=== PATIENT | female | born 1940 | race Asian ===

== ENCOUNTER → 2016-10-29 | Outpatient (CLI) | payer MEDICARE | END | disposition home or self-care (01) | LOC: CFH 10:02 | PROVIDERS: ATTEND Family Medicine | DX: Z12.31 Encounter for screening mammogram for malignant neoplasm of breast (principal) | CPT/HCPCS: G0202 ==

== ENCOUNTER → 2017-09-29 | Outpatient (CLI) | payer MEDICARE | LOC: CFH 07:53 | PROVIDERS: ATTEND Internal Medicine Nephrology | DX: N17.8 Other acute kidney failure (principal) | CPT/HCPCS: 76770 ==

== ENCOUNTER 2018-03-23 09:23 | Inpatient (IN) | payer MEDICARE ==
[~2018-03-23] VITALS: Ht 149.9 cm; Wt 77.7 kg
[2018-03-23] MEDS ORDERED: SODIUM CHLORIDE 0.9% 1,000 ML IV ONE (10:08)
[2018-03-23] MEDS ORDERED: SODIUM CHLORIDE 0.9% 1,000ML IVBOLUS ONE (10:30)
[2018-03-23] MEDS ORDERED: SODIUM CHLORIDE FLUSH 10ML SYR IVF ONE (10:30)
[2018-03-23 10:52] LABS: ALANINE AMINOTRANSFERASE 27 U/L (12-78); ALBUMIN 2.9 g/dL (3.4-5.0); ANION GAP 12 mmol/L (5-15); CALCIUM 8.7 mg/dL (8.5-10.1); CHLORIDE 97 mmol/L (98-107); CREATININE 1.88 mg/dL (0.55-1.02)
[2018-03-23 10:57] LABS: ALKALINE PHOSPHATASE 104 U/L (45-117); BILIRUBIN,TOTAL 2.8 mg/dL (0.2-1.0); TOTAL PROTEIN 7.8 g/dL (6.4-8.2); TROPONIN I 0.074 ng/mL (0.000-0.045)
[2018-03-23 11:17] LABS: MEAN CORPUSCULAR HEMOGLOBIN 32.2 pg (27.0-34.8); MEAN CORPUSCULAR HGB CONC 34.7 g/dL (32.4-35.8); MEAN PLATELET VOLUME 9.9 fL (7.4-10.4); PLATELET COUNT 93 x10^3/uL (130-400); RED BLOOD COUNT 3.57 x10^6/uL (3.82-5.3); RED CELL DISTRIBUTION WIDTH 16.2 % (9.6-15.2)
[2018-03-23 11:18] LABS: MD YES
[2018-03-23] MEDS ORDERED: LOSA100T7 PO (11:18)
[2018-03-23] MEDS ORDERED: INSU100V8 SQ (11:18)
[2018-03-23] MEDS ORDERED: METO50TA82 PO (11:18)
[2018-03-23 11:19] LABS: BANDS%(MANUAL) 10 % (0-7); LYMPH#(MANUAL) 0.96 x10^3/uL (1-3.4); LYMPHS% (MANUAL) 6 % (22-44); MONOS#(MANUAL) 0.48 x10^3/uL (0.3-2.7); MONOS% (MANUAL) 3 % (2-9); SEG#(MANUAL) 12.96 x10^3/uL (1.8-6.8); SEGS% (MANUAL) 81 % (42-75)
[2018-03-23] MEDS ORDERED: LEVO50TA5 PO (11:19)
[2018-03-23] MEDS ORDERED: ATOR40TA PO (11:19)
[2018-03-23] MEDS ORDERED: MAGN400T22 PO (11:19)
[2018-03-23] MEDS ORDERED: AMIT10TA PO (11:19)
[2018-03-23] MEDS ORDERED: GLIM4TAB2 PO (11:19)
[2018-03-23] MEDS ORDERED: PIOG45TA64 PO (11:19)
[2018-03-23 11:20] LABS: <PLT MORPHOLOGY> NORMAL PLT MORPH; ANISOCYTOSIS 1+
[2018-03-23 11:22] LABS: <PLATELET ESTIMATE> ADEQUATE
[2018-03-23 11:35] LABS: MICROSCOPIC AUTO
[2018-03-23 11:42] LABS: CULTURE INDICATED? YES
[2018-03-23] MEDS ORDERED: CEFTRIAXONE 1,000 MG in SODIUM CHLORIDE 0.9% 50 ML IVPB ONE (12:00)
[2018-03-23] MEDS ORDERED: SODIUM CHLORIDE FLUSH 10ML SYR IVF PRN (12:00)
[2018-03-23] MEDS ORDERED: CEFTRIAXONE PMX 1GM/50ML 50 ML IVPB ONE (12:00)
[2018-03-23] MEDS ORDERED: CEFTRIAXONE PMX 1GM/50ML 50 ML ONE (12:18)
[2018-03-23] MEDS ORDERED: LABETALOL 5MG/ML, 20ML IVPush PRN (12:30)
[2018-03-23] MEDS ORDERED: ONDANSETRON ODT 4 MG PO PRN (12:30)
[2018-03-23] MEDS ORDERED: POLYETHYLENE GLYCOL 17 GM PACKET PO PRN (12:30)
[2018-03-23] MEDS ORDERED: ONDANSETRON 2MG/ML, 2ML IVPush PRN (12:30)
[2018-03-23 13:44] VITALS: BP 137/73
[2018-03-23] MEDS ORDERED: AZIT250T89 PO (13:54)
[2018-03-23] MEDS ORDERED: ASPI-496 PO (13:56)
[2018-03-23] MEDS ORDERED: CEFTRIAXONE PMX 1GM/50ML 50 ML IV ONE (14:00)
[2018-03-23 14:26] VITALS: BP 163/79
[2018-03-23] MEDS ORDERED: SODIUM CHLORIDE 0.45%, 1,000ML IVBOLUS ONE (16:00)
[2018-03-23] MEDS ORDERED: SODIUM CHLORIDE 0.45% 1,000 ML IV SCH (16:00)
[2018-03-23] MEDS ORDERED: PHARMACY MAY ADJ FOR RENAL FX MC PRN (16:00)
[2018-03-23] MEDS: PIPERACILLIN/TAZO/PMX 2.25GM 50 ML IVPB SCH (16:25)
[2018-03-23] MEDS ORDERED: GLUCAGON 1 MG IM PRN (16:30)
[2018-03-23] MEDS ORDERED: DEXTROSE 50%, 50ML SYRINGE IVPush PRN (16:30)
[2018-03-23] MEDS ORDERED: DEXTROSE 4 GM TAB.CHEW PO PRN (16:30)
[2018-03-23 17:01] LABS: TROPONIN I 0.072 ng/mL (0.000-0.045)
[2018-03-23 20:05] VITALS: BP 129/61
[2018-03-23] MEDS: ATORVASTATIN 40 MG TABLET PO SCH (21:00)
[2018-03-23] MEDS: SODIUM CHLORIDE FLUSH 10ML SYR IVF SCH (21:08)
[2018-03-23] MEDS: D5%-0.9% NACL 1,000 ML IV SCH (21:11)
[2018-03-24] MEDS: PIPERACILLIN/TAZO/PMX 2.25GM 50 ML IVPB SCH ×3 (01:26→17:02)
[2018-03-24 01:38] VITALS: BP 135/75
[2018-03-24] MEDS: D5%-0.9% NACL 1,000 ML IV SCH ×3 (05:06→19:58)
[2018-03-24 05:30] LABS: ALANINE AMINOTRANSFERASE 21 U/L (12-78); ALBUMIN 2.1 g/dL (3.4-5.0); ANION GAP 11 mmol/L (5-15); CALCIUM 7.2 mg/dL (8.5-10.1); CHLORIDE 110 mmol/L (98-107); CREATININE 1.44 mg/dL (0.55-1.02)
[2018-03-24 05:31] LABS: MEAN CORPUSCULAR HEMOGLOBIN 32.7 pg (27.0-34.8); MEAN CORPUSCULAR HGB CONC 34.7 g/dL (32.4-35.8); MEAN CORPUSCULAR VOLUME 94.1 fL (80-100); RED BLOOD COUNT 3.25 x10^6/uL (3.82-5.3); RED CELL DISTRIBUTION WIDTH 16.9 % (9.6-15.2)
[2018-03-24 05:40] LABS: ALKALINE PHOSPHATASE 92 U/L (45-117); TOTAL PROTEIN 6.4 g/dL (6.4-8.2)
[2018-03-24 05:59] LABS: PLATELET COUNT 95 x10^3/uL (130-400)
[2018-03-24 06:00] LABS: MD YES; MEAN PLATELET VOLUME 9.7 fL (7.4-10.4)
[2018-03-24 06:01] LABS: BAND#(MANUAL) 1.06 x10^3/uL; BANDS%(MANUAL) 10 % (0-7); LYMPH#(MANUAL) 1.17 x10^3/uL (1-3.4); LYMPHS% (MANUAL) 11 % (22-44); MONOS#(MANUAL) 0.74 x10^3/uL (0.3-2.7); MONOS% (MANUAL) 7 % (2-9); SEG#(MANUAL) 7.63 x10^3/uL (1.8-6.8); SEGS% (MANUAL) 72 % (42-75)
[2018-03-24 06:02] LABS: <PLATELET ESTIMATE> DECREASED; <PLT MORPHOLOGY> NORMAL PLT MORPH; ANISOCYTOSIS 1+
[2018-03-24] MEDS: LEVOTHYROXINE 50 MCG TABLET PO SCH (06:37)
[2018-03-24 07:35] VITALS: BP 124/74
[2018-03-24] MEDS: SODIUM CHLORIDE FLUSH 10ML SYR IVF SCH ×2 (08:27→19:58)
[2018-03-24] MEDS ORDERED: ASPIRIN 81 MG TABLET EC PO SCH (09:00)
[2018-03-24] MEDS ORDERED: POTASSIUM CHLORIDE 20 MEQ TAB.ER.PRT PO ONE (09:00)
[2018-03-24] MEDS: SENNA/DOCUSATE TABLET PO SCH (12:16)
[2018-03-24] MEDS ORDERED: CEFTRIAXONE PMX 2GM/50ML 50 ML IV SCH (12:30)
[2018-03-24 12:31] LABS: FOLATE LEVEL > 20.0 ng/mL (3.1-17.5)
[2018-03-24 12:53] VITALS: BP 114/68
[2018-03-24] MEDS ORDERED: LIDOCAINE-MPF 2% ,5ML ONE (13:42)
[2018-03-24] MEDS ORDERED: MIDAZOLAM 1 MG/ML, 2ML ONE (13:42)
[2018-03-24] MEDS ORDERED: ROCURONIUM 10MG/ML,5ML ONE (13:42)
[2018-03-24] MEDS ORDERED: PROPOFOL 10 MG/ML, 20ML ONE (13:42)
[2018-03-24] MEDS ORDERED: FENTANYL PF 250 MCG/5ML ONE (13:42)
[2018-03-24] MEDS ORDERED: DEXAMETHASONE 4 MG/ML, 1ML ONE ×2 (13:45)
[2018-03-24] MEDS ORDERED: ONDANSETRON 2MG/ML, 2ML ONE ×2 (13:45)
[2018-03-24] MEDS ORDERED: BUPIVACAINE/PF 0.5% ONE (13:53)
[2018-03-24] MEDS ORDERED: LABETALOL 5MG/ML, 20ML IV PRN (15:30)
[2018-03-24] MEDS ORDERED: FENTANYL PF 100 MCG/2ML IV PRN (15:30)
[2018-03-24] MEDS ORDERED: MEPERIDINE/PF 25MG/0.5ML IVPush PRN (15:30)
[2018-03-24] MEDS ORDERED: hydrALAzine 20 MG/ML, 1ML IV PRN (15:30)
[2018-03-24] MEDS ORDERED: HYDROmorphone 2 MG/ML, 1ML IV PRN (15:30)
[2018-03-24] MEDS ORDERED: HALOPERIDOL 5 MG/ML IV PRN (15:30)
[2018-03-24] MEDS ORDERED: OXYcodone 5 MG/5 ML ORAL.SOL UDC PO PRN (15:30)
[2018-03-24] MEDS ORDERED: PROMETHAZINE 25 MG/ML, 1ML IV PRN (15:30)
[2018-03-24] MEDS ORDERED: SUGAMMADEX 200 MG/2 ML IVPush ONE (15:35)
[2018-03-24] MEDS ORDERED: OXYcodone 5 MG/5 ML ORAL.SOL UDC ONE (16:02)
[2018-03-24] MEDS ORDERED: FENTANYL PF 100 MCG/2ML ONE (16:02)
[2018-03-24 16:55] VITALS: BP 123/60
[2018-03-24 18:56] VITALS: BP 113/79
[2018-03-24] MEDS: ATORVASTATIN 40 MG TABLET PO SCH (19:57)
[2018-03-24] MEDS ORDERED: LORazepam 2 MG/ML, 1ML IV PRN (23:00)
[2018-03-24] MEDS ORDERED: LORazepam 1MG TABLET PO PRN (23:00)
[2018-03-24] MEDS: OXYcodone 5 MG/5 ML ORAL.SOL UDC PO PRN (23:35)
[2018-03-25 00:36] VITALS: BP 134/63
[2018-03-25] MEDS: PIPERACILLIN/TAZO/PMX 2.25GM 50 ML IVPB SCH ×2 (01:16→08:58)
[2018-03-25] MEDS: INSULIN GLARGINE 100 UNITS/ML, PEN SQ-INSULIN SCH ×2 (01:35→20:41)
[2018-03-25] MEDS ORDERED: ALBUTEROL/IPRATROPIUM 2.5MG/0.5MG, 3 ML ONE (01:40)
[2018-03-25] MEDS ORDERED: ALBUTEROL/IPRATROPIUM 2.5MG/0.5MG, 3 ML NPPB PRN (02:00)
[2018-03-25 03:47] LABS: ALBUMIN 2.2 g/dL (3.4-5.0); ANION GAP 10 mmol/L (5-15); CALCIUM 7.4 mg/dL (8.5-10.1); CHLORIDE 110 mmol/L (98-107)
[2018-03-25 03:50] LABS: ALANINE AMINOTRANSFERASE 24 U/L (12-78); ALKALINE PHOSPHATASE 92 U/L (45-117); CREATININE 1.25 mg/dL (0.55-1.02); TOTAL PROTEIN 6.3 g/dL (6.4-8.2)
[2018-03-25 03:55] LABS: MEAN CORPUSCULAR HEMOGLOBIN 32.5 pg (27.0-34.8); MEAN CORPUSCULAR HGB CONC 34.9 g/dL (32.4-35.8); MEAN PLATELET VOLUME 9.3 fL (7.4-10.4); PLATELET COUNT 86 x10^3/uL (130-400); RED BLOOD COUNT 3.13 x10^6/uL (3.82-5.3); RED CELL DISTRIBUTION WIDTH 17.3 % (9.6-15.2)
[2018-03-25 04:26] LABS: BASOPHILS # (AUTO) 0.01 x10^3/uL (0-0.1); BASOPHILS % (AUTO) 0 % (0-1); EOSINOPHILS # (AUTO) 0.07 x10^3/uL (0-0.4); EOSINOPHILS % (AUTO) 1 % (1-7); LYMPHOCYTES # (AUTO) 0.91 x10^3/uL (1-3.4); LYMPHOCYTES % (AUTO) 8 % (22-44); MD SCAN; MONOCYTES # (AUTO) 0.74 x10^3/uL (0.2-0.8); MONOCYTES % (AUTO) 7 % (2-9); NEUTROPHILS # (AUTO) 9.42 x10^3/uL (1.8-6.8); NEUTROPHILS % (AUTO) 85 % (42-75)
[2018-03-25] MEDS: OXYcodone 5 MG/5 ML ORAL.SOL UDC PO PRN ×2 (05:48→22:39)
[2018-03-25] MEDS: METOPROLOL TARTRATE 50 MG TABLET PO SCH (05:48)
[2018-03-25] MEDS: LEVOTHYROXINE 50 MCG TABLET PO SCH (05:52)
[2018-03-25] MEDS: D5%-0.9% NACL 1,000 ML IV SCH ×2 (07:00→13:33)
[2018-03-25] MEDS ORDERED: PIOGLITAZONE 15 MG TABLET PO SCH (08:00)
[2018-03-25 08:15] LABS: TROPONIN I < 0.015 ng/mL (0.000-0.045)
[2018-03-25 08:16] VITALS: BP 142/69
[2018-03-25] MEDS: LOSARTAN 50MG TABLET PO SCH (08:53)
[2018-03-25] MEDS: AZITHROMYCIN 250 MG TABLET PO SCH (08:54)
[2018-03-25] MEDS: GLIMEPIRIDE 1 MG TABLET PO SCH ×2 (08:54→16:03)
[2018-03-25] MEDS: MAGNESIUM OXIDE 400 MG TABLET PO SCH ×3 (08:54→20:41)
[2018-03-25] MEDS ORDERED: POTASSIUM CHLORIDE 20 MEQ TAB.ER.PRT PO ONE (09:00)
[2018-03-25 14:02] VITALS: BP 113/56
[2018-03-25] MEDS: CEFTRIAXONE PMX 2GM/50ML 50 ML IV SCH (16:02)
[2018-03-25] MEDS: SENNA/DOCUSATE TABLET PO SCH (20:41)
[2018-03-25] MEDS: ATORVASTATIN 40 MG TABLET PO SCH (20:41)
[2018-03-25 21:00] VITALS: BP 115/72
[2018-03-26 02:44] VITALS: BP 114/64
[2018-03-26 05:18] LABS: ALBUMIN 2.1 g/dL (3.4-5.0); ANION GAP 6 mmol/L (5-15); BASOPHILS # (AUTO) 0.04 x10^3/uL (0-0.1); BASOPHILS % (AUTO) 0 % (0-1); CALCIUM 7.4 mg/dL (8.5-10.1); CHLORIDE 113 mmol/L (98-107); EOSINOPHILS # (AUTO) 0.12 x10^3/uL (0-0.4); EOSINOPHILS % (AUTO) 1 % (1-7); LYMPHOCYTES # (AUTO) 1.25 x10^3/uL (1-3.4); LYMPHOCYTES % (AUTO) 12 % (22-44); MD NO; MEAN CORPUSCULAR HEMOGLOBIN 32.2 pg (27.0-34.8); MEAN CORPUSCULAR HGB CONC 34.8 g/dL (32.4-35.8); MEAN CORPUSCULAR VOLUME 92.6 fL (80-100); MEAN PLATELET VOLUME 9.1 fL (7.4-10.4); MONOCYTES % (AUTO) 5 % (2-9); NEUTROPHILS # (AUTO) 9.01 x10^3/uL (1.8-6.8); NEUTROPHILS % (AUTO) 83 % (42-75); PLATELET COUNT 118 x10^3/uL (130-400); RED BLOOD COUNT 3.08 x10^6/uL (3.82-5.3)
[2018-03-26 05:21] LABS: ALANINE AMINOTRANSFERASE 24 U/L (12-78); ALKALINE PHOSPHATASE 101 U/L (45-117); BILIRUBIN,TOTAL 1.6 mg/dL (0.2-1.0); CREATININE 1.12 mg/dL (0.55-1.02); TOTAL PROTEIN 6.1 g/dL (6.4-8.2)
[2018-03-26] MEDS: METOPROLOL TARTRATE 50 MG TABLET PO SCH (06:29)
[2018-03-26] MEDS: LEVOTHYROXINE 50 MCG TABLET PO SCH (06:29)
[2018-03-26 08:45] VITALS: BP 118/72
[2018-03-26] MEDS: SENNA/DOCUSATE TABLET PO SCH (08:51)
[2018-03-26] MEDS: AZITHROMYCIN 250 MG TABLET PO SCH (08:51)
[2018-03-26] MEDS: MAGNESIUM OXIDE 400 MG TABLET PO SCH ×3 (08:51→21:13)
[2018-03-26] MEDS: LOSARTAN 50MG TABLET PO SCH (08:51)
[2018-03-26] MEDS: GLIMEPIRIDE 1 MG TABLET PO SCH ×2 (08:51→16:40)
[2018-03-26 15:18] VITALS: BP 116/71
[2018-03-26] MEDS: CEFTRIAXONE PMX 2GM/50ML 50 ML IV SCH (15:53)
[2018-03-26 19:58] VITALS: BP 134/77
[2018-03-26] MEDS: ATORVASTATIN 40 MG TABLET PO SCH (21:12)
[2018-03-26] MEDS: OXYcodone 5 MG/5 ML ORAL.SOL UDC PO PRN (21:12)
[2018-03-26] MEDS: INSULIN GLARGINE 100 UNITS/ML, PEN SQ-INSULIN SCH (21:18)
[2018-03-27 02:06] VITALS: BP 107/62
[2018-03-27 04:49] LABS: BASOPHILS # (AUTO) 0.01 x10^3/uL (0-0.1); BASOPHILS % (AUTO) 0 % (0-1); EOSINOPHILS # (AUTO) 0.37 x10^3/uL (0-0.4); EOSINOPHILS % (AUTO) 4 % (1-7); LYMPHOCYTES # (AUTO) 1.05 x10^3/uL (1-3.4); LYMPHOCYTES % (AUTO) 12 % (22-44); MD NO; MEAN CORPUSCULAR HEMOGLOBIN 32.1 pg (27.0-34.8); MEAN CORPUSCULAR HGB CONC 34.7 g/dL (32.4-35.8); MEAN CORPUSCULAR VOLUME 92.6 fL (80-100); MEAN PLATELET VOLUME 8.5 fL (7.4-10.4); MONOCYTES # (AUTO) 0.51 x10^3/uL (0.2-0.8); MONOCYTES % (AUTO) 6 % (2-9); NEUTROPHILS # (AUTO) 6.75 x10^3/uL (1.8-6.8); NEUTROPHILS % (AUTO) 78 % (42-75); PLATELET COUNT 143 x10^3/uL (130-400); RED BLOOD COUNT 3.03 x10^6/uL (3.82-5.3); RED CELL DISTRIBUTION WIDTH 16.8 % (9.6-15.2)
[2018-03-27 04:50] LABS: ANION GAP 12 mmol/L (5-15); CALCIUM 7.4 mg/dL (8.5-10.1); CHLORIDE 110 mmol/L (98-107)
[2018-03-27 04:54] LABS: ALANINE AMINOTRANSFERASE 23 U/L (12-78); ALKALINE PHOSPHATASE 105 U/L (45-117); BILIRUBIN,TOTAL 1.2 mg/dL (0.2-1.0); TOTAL PROTEIN 6.4 g/dL (6.4-8.2)
[2018-03-27] MEDS: LEVOTHYROXINE 50 MCG TABLET PO SCH (06:34)
[2018-03-27] MEDS: METOPROLOL TARTRATE 50 MG TABLET PO SCH (06:34)
[2018-03-27 06:58] VITALS: BP 138/77
[2018-03-27] MEDS: GLIMEPIRIDE 1 MG TABLET PO SCH ×2 (08:34→17:10)
[2018-03-27] MEDS: MAGNESIUM OXIDE 400 MG TABLET PO SCH ×2 (08:34→15:12)
[2018-03-27] MEDS: SENNA/DOCUSATE TABLET PO SCH (08:34)
[2018-03-27] MEDS: LOSARTAN 50MG TABLET PO SCH (08:34)
[2018-03-27] MEDS ORDERED: INSU100I13 SQ-INSULIN (14:38)
[2018-03-27] MEDS ORDERED: CEFD300C37 PO (14:38)
[2018-03-27 14:47] VITALS: BP 152/82
[2018-03-27] MEDS ORDERED: CEFTRIAXONE PMX 2GM/50ML 50 ML IV SCH (15:00)
[2018-03-27] MEDS: OXYcodone 5 MG/5 ML ORAL.SOL UDC PO PRN (15:12)
[2018-03-27] MEDS ORDERED: INSULIN GLARGINE 100 UNITS/ML, PEN SQ-INSULIN SCH (21:00)
== END 2018-03-27 14:30 | disposition home health service (06) | DRG 853 ==
LOC: ED 10:12 → EDIP 11:59 → 5SO 13:16 → 4NOR 03-25 19:49
PROVIDERS: ADMIT Internal Medicine; ATTEND Internal Medicine
PROC: 0FT44ZZ Resection of Gallbladder, Percutaneous Endoscopic Approach (ICD-10-PCS; principal; 2018-03-24 14:00)
DX: A41.9 Sepsis, unspecified organism (principal); E43 Unspecified severe protein-calorie malnutrition; N10 Acute pyelonephritis; E87.1 Hypo-osmolality and hyponatremia; N17.9 Acute kidney failure, unspecified; I50.30 Unspecified diastolic (congestive) heart failure; K80.00 Calculus of gallbladder with acute cholecystitis without obstruction; Z68.34 Body mass index [BMI] 34.0-34.9, adult; D64.9 Anemia, unspecified; D69.6 Thrombocytopenia, unspecified; E03.9 Hypothyroidism, unspecified; E11.9 Type 2 diabetes mellitus without complications; E66.01 Morbid (severe) obesity due to excess calories; E78.5 Hyperlipidemia, unspecified; E86.0 Dehydration; E87.6 Hypokalemia; I11.0 Hypertensive heart disease with heart failure; K59.00 Constipation, unspecified; Z79.4 Long term (current) use of insulin; Z90.49 Acquired absence of other specified parts of digestive tract; Z90.710 Acquired absence of both cervix and uterus; Z71.3 Dietary counseling and surveillance; Z98.42 Cataract extraction status, left eye; Z98.41 Cataract extraction status, right eye
CPT/HCPCS: 36415; 71045; 74022; 74176; 76705; 76770; 80053; 81001; 82140; 82607; 82746; 82962; 83605; 83690; 83735; 83880; 84100; 84439; 84443; 84484; 85025; 87040; 87077; 87086; 87186; 88304; 93005; 93306; 94640; 96361; 96374; 99285; G0378; J0696; J1100; J2250; J2405; J2543; J2704; J3010; J3490; J7042; J1815; J7030

== ENCOUNTER 2018-06-08 21:30 | Observation (INO) | payer MEDICARE ==
[~2018-06-08] VITALS: Ht 139.7 cm; Wt 75.7 kg
[~2018-06-08 21:30] MED LIST: AMIT10TA PO; ASPI-496 PO; ATOR40TA PO; AZIT250T89 PO; CEFD300C37 PO; GLIM4TAB2 PO; INSU100I13 SQ-INSULIN; INSU100V8 SQ; LEVO50TA5 PO; LOSA100T14 PO; MAGN400T22 PO; METO50TA82 PO; PIOG45TA64 PO
--- NOTE | 2018-06-08 22:21 | NUR ---
PER DAUGHTER PT ACCIDENTALLY TOOK TWO DOSES OF HER LANTUS THIS EVENING, 36 UNITS.
[2018-06-08 23:09] LABS: ALBUMIN 3.4 g/dL (3.4-5.0); ANION GAP 6 mmol/L (5-15); CALCIUM 9.1 mg/dL (8.5-10.1); CHLORIDE 109 mmol/L (98-107); CREATININE 1.07 mg/dL (0.55-1.02)
[2018-06-08 23:28] LABS: BASOPHILS # (AUTO) 0.02 x10^3/uL (0-0.1); BASOPHILS % (AUTO) 0 % (0-1); EOSINOPHILS # (AUTO) 0.07 x10^3/uL (0-0.4); EOSINOPHILS % (AUTO) 2 % (1-7); LYMPHOCYTES # (AUTO) 1.27 x10^3/uL (1-3.4); LYMPHOCYTES % (AUTO) 31 % (22-44); MD NO; MEAN CORPUSCULAR HEMOGLOBIN 32.1 pg (27.0-34.8); MEAN CORPUSCULAR HGB CONC 34.2 g/dL (32.4-35.8); MEAN CORPUSCULAR VOLUME 93.8 fL (80-100); MEAN PLATELET VOLUME 8.6 fL (7.4-10.4); MONOCYTES # (AUTO) 0.42 x10^3/uL (0.2-0.8); MONOCYTES % (AUTO) 10 % (2-9); NEUTROPHILS # (AUTO) 2.29 x10^3/uL (1.8-6.8); NEUTROPHILS % (AUTO) 56 % (42-75); PLATELET COUNT 146 x10^3/uL (130-400); RED BLOOD COUNT 3.39 x10^6/uL (3.82-5.3)
--- NOTE | 2018-06-08 23:48 | NUR ---
awaiting admit orders
--- NOTE | 2018-06-09 00:47 | NUR ---
PT RESTING CALMLY,NAD, DENIES NEEDS AT THIS TIME, DAUGHTER AT BEDSIDE, CALL LIGHT WITHIN REACH.
[2018-06-09] MEDS ORDERED: DEXTROSE 50%, 50ML SYRINGE IVPush PRN (01:00)
[2018-06-09] MEDS ORDERED: GUAIFENESIN/DM 200-20MG, 10ML UDC PO PRN (01:00)
[2018-06-09] MEDS ORDERED: ENOXAPARIN 40 MG/0.4 ML SQ SCH ×2 (01:00→02:30)
[2018-06-09] MEDS ORDERED: ACETAMINOPHEN 325 MG TABLET PO PRN (01:00)
[2018-06-09] MEDS ORDERED: ONDANSETRON ODT 4 MG PO PRN (01:00)
[2018-06-09] MEDS ORDERED: GUAIFENESIN/COD200MG-20MG/10ML LIQUID PO PRN (01:00)
[2018-06-09] MEDS ORDERED: DEXTROSE 4 GM TAB.CHEW PO PRN (01:00)
--- NOTE | 2018-06-09 01:00 | NUR ---
pt to xray
[2018-06-09] MEDS ORDERED: DEXTROSE 50%, 50ML SYRINGE ONE (01:16)
--- NOTE | 2018-06-09 01:19 | NUR ---
report to elisa reported bs 40 at this time 1/2 amp d 50 given ivp and juice po
--- NOTE | 2018-06-09 01:26 | NUR ---
pt drank oj and eating crackers and peanutbutter at this time
[2018-06-09 02:03] VITALS: BP 134/75
[2018-06-09] MEDS ORDERED: ENOXAPARIN 30 MG/0.3 ML ONE (02:12)
[2018-06-09 06:39] VITALS: BP 125/70
[2018-06-09] MEDS ORDERED: SODIUM CHLORIDE FLUSH 10ML SYR IVF SCH (09:00)
[2018-06-09 12:16] VITALS: BP 116/70
[2018-06-09] MEDS ORDERED: GUAI200T3 PO (12:25)
== END 2018-06-09 14:25 | disposition home or self-care (01) ==
LOC: ED 23:59 → EDIP 06-09 00:12 → INTOOBSV 06-09 00:12 → 4NOR 06-09 01:36 → DCLOUNGE 06-09 14:09
PROVIDERS: ADMIT Internal Medicine; ATTEND Internal Medicine
DX: T38.3X1A Poisoning by insulin and oral hypoglycemic [antidiabetic] drugs, accidental (unintentional), initial encounter (principal); E10.9 Type 1 diabetes mellitus without complications; I10 Essential (primary) hypertension; E03.9 Hypothyroidism, unspecified; D64.9 Anemia, unspecified; E10.649 Type 1 diabetes mellitus with hypoglycemia without coma; E78.00 Pure hypercholesterolemia, unspecified; Z79.4 Long term (current) use of insulin; Y92.009 Unspecified place in unspecified non-institutional (private) residence as the place of occurrence of the external cause
CPT/HCPCS: 71046; 80048; 82040; 82962; 85025; 96372; 96374; 99285; G0378; J1650

== ENCOUNTER 2018-06-19 23:21 | Observation (INO) | payer MEDICARE ==
[~2018-06-19] VITALS: Ht 149.9 cm; Wt 74.8 kg
[~2018-06-19 23:21] MED LIST changes: +GUAI200T3 PO
--- NOTE | 2018-06-19 23:25 | NUR ---
BS IN TIRAGE 27, PT TAKEN STRAIGHT BACK TO RROM AND DR MEADOWS TO BEDSIDE, IV BEING ESTABLISED AND D50 AT BEDSIDE WELL JUICE, PT NOT ALERT ENOUGH TO TOLERATE PO FLUIDS AT THIS TIME
[2018-06-19] MEDS ORDERED: DEXTROSE 50%, 50ML SYRINGE ONE (23:31)
--- NOTE | 2018-06-19 23:41 | NUR ---
PT MORE AWAKE AFTER D50 INJECTION. ENCOURAGING PT TO DRINK JUICE. PT ON CONT. SPO2, BP, AND ACID PAINTER
[2018-06-20] MEDS ORDERED: DEXTROSE 50%, 50ML SYRINGE IVPush ONE
[2018-06-20 00:03] LABS: BASOPHILS # (AUTO) 0.02 x10^3/uL (0-0.1); BASOPHILS % (AUTO) 0 % (0-1); EOSINOPHILS # (AUTO) 0.09 x10^3/uL (0-0.4); EOSINOPHILS % (AUTO) 1 % (1-7); LYMPHOCYTES # (AUTO) 2.76 x10^3/uL (1-3.4); LYMPHOCYTES % (AUTO) 39 % (22-44); MD NO; MEAN CORPUSCULAR HGB CONC 34.1 g/dL (32.4-35.8); MEAN CORPUSCULAR VOLUME 93.7 fL (80-100); MONOCYTES # (AUTO) 0.68 x10^3/uL (0.2-0.8); MONOCYTES % (AUTO) 10 % (2-9); NEUTROPHILS # (AUTO) 3.51 x10^3/uL (1.8-6.8); NEUTROPHILS % (AUTO) 50 % (42-75); PLATELET COUNT 146 x10^3/uL (130-400); RED BLOOD COUNT 3.51 x10^6/uL (3.82-5.3); RED CELL DISTRIBUTION WIDTH 16.2 % (9.6-15.2)
[2018-06-20 00:11] LABS: ALANINE AMINOTRANSFERASE 22 U/L (12-78); ALBUMIN 3.5 g/dL (3.4-5.0); ANION GAP 9 mmol/L (5-15); CALCIUM 8.9 mg/dL (8.5-10.1); CHLORIDE 105 mmol/L (98-107); CREATININE 1.64 mg/dL (0.55-1.02)
[2018-06-20 00:15] LABS: ALKALINE PHOSPHATASE 62 U/L (45-117); BILIRUBIN,TOTAL 0.5 mg/dL (0.2-1.0); TOTAL PROTEIN 8.4 g/dL (6.4-8.2); TROPONIN I < 0.015 ng/mL (0.000-0.045)
--- NOTE | 2018-06-20 02:09 | NUR ---
REPORT GIVEN TO ROSEMARY WALLACE
[2018-06-20] MEDS ORDERED: POTASSIUM CHLORIDE 20 MEQ TAB.ER.PRT ONE (02:15)
[2018-06-20] MEDS ORDERED: POTASSIUM CHLORIDE 20 MEQ TAB.ER.PRT PO ONE (02:30)
[2018-06-20 03:23] VITALS: BP 127/75
[2018-06-20] MEDS ORDERED: NS + 20MEQ KCL 1,000 ML IV SCH ×2 (03:28→04:30)
[2018-06-20 05:08] LABS: ANION GAP 6 mmol/L (5-15); CALCIUM 8.6 mg/dL (8.5-10.1); CHLORIDE 105 mmol/L (98-107)
[2018-06-20 05:09] LABS: CREATININE 1.38 mg/dL (0.55-1.02)
[2018-06-20 06:43] VITALS: BP 118/57
[2018-06-20] MEDS: LEVOTHYROXINE 50 MCG TABLET PO SCH (08:42)
[2018-06-20] MEDS: ASPIRIN 81 MG TABLET EC PO SCH (08:42)
[2018-06-20] MEDS: LOSARTAN 50MG TABLET PO SCH (08:42)
[2018-06-20] MEDS: MAGNESIUM OXIDE 400 MG TABLET PO SCH ×3 (08:42→19:36)
[2018-06-20] MEDS: SODIUM CHLORIDE 0.9% 1,000 ML IV SCH ×2 (08:44→22:03)
[2018-06-20 14:46] VITALS: BP 96/55
[2018-06-20 20:00] VITALS: BP 112/56
[2018-06-20] MEDS ORDERED: AMITRIPTYLINE 10 MG TABLET PO SCH (21:00)
[2018-06-20] MEDS ORDERED: ATORVASTATIN 40 MG TABLET PO SCH (21:00)
[2018-06-21 01:50] VITALS: BP 124/68
[2018-06-21] MEDS ORDERED: NS + 20MEQ KCL 1,000 ML IV SCH (03:28)
[2018-06-21] MEDS: LEVOTHYROXINE 50 MCG TABLET PO SCH (05:24)
[2018-06-21] MEDS: ASPIRIN 81 MG TABLET EC PO SCH (05:24)
[2018-06-21 07:09] VITALS: BP 112/59
[2018-06-21 07:44] LABS: ANION GAP 4 mmol/L (5-15); CALCIUM 8.6 mg/dL (8.5-10.1); CHLORIDE 114 mmol/L (98-107); CREATININE 1.17 mg/dL (0.55-1.02)
[2018-06-21] MEDS ORDERED: LOSA25TA2 PO (08:19)
[2018-06-21] MEDS: MAGNESIUM OXIDE 400 MG TABLET PO SCH (08:39)
[2018-06-21] MEDS: LOSARTAN 50MG TABLET PO SCH (08:40)
[2018-06-21] MEDS: SODIUM CHLORIDE 0.9% 1,000 ML IV SCH (10:20)
== END 2018-06-21 12:25 | disposition home or self-care (01) ==
LOC: ED 23:49 → INTOOBSV 06-20 01:31 → EDIP 06-20 01:31 → UNDOADMOB 06-20 01:31 → EDIP 06-20 03:06 → 3NE 06-20 03:06 → EDIP 06-20 03:28 → DCLOUNGE 06-21 12:10 → 3NE 06-21 12:10 → UNDODISOB 06-21 12:25
PROVIDERS: ADMIT Hospitalist; ATTEND Hospitalist
DX: T38.3X1A Poisoning by insulin and oral hypoglycemic [antidiabetic] drugs, accidental (unintentional), initial encounter (principal); T38.3X5A Adverse effect of insulin and oral hypoglycemic [antidiabetic] drugs, initial encounter; E10.649 Type 1 diabetes mellitus with hypoglycemia without coma; D64.9 Anemia, unspecified; E03.9 Hypothyroidism, unspecified; E78.00 Pure hypercholesterolemia, unspecified; E78.5 Hyperlipidemia, unspecified; E87.6 Hypokalemia; G93.41 Metabolic encephalopathy; I10 Essential (primary) hypertension; N17.9 Acute kidney failure, unspecified; Z79.4 Long term (current) use of insulin; Z79.899 Other long term (current) drug therapy
CPT/HCPCS: 36415; 80048; 80053; 82962; 83735; 84484; 85025; 93005; 96374; 97161; 99291; G0378; G8978; G8979; G8980; J3480; J7030

== ENCOUNTER → 2018-11-17 | Outpatient (CLI) | payer MEDICARE ==
[~2018-11-17] MED LIST changes: +LOSA25TA2 PO; +REGADENOSON 0.4 MG/5 ML SYRINGE ONE
== END | disposition home or self-care (01) ==
LOC: CFH 06:44
PROVIDERS: ATTEND Internal Medicine Cardiovascular Disease
DX: I08.3 Combined rheumatic disorders of mitral, aortic and tricuspid valves (principal); I11.9 Hypertensive heart disease without heart failure; E11.9 Type 2 diabetes mellitus without complications; R60.9 Edema, unspecified
CPT/HCPCS: 78452; 93017; 93306; A9502; J2785

== ENCOUNTER → 2019-07-07 | Outpatient (CLI) | payer MEDICARE ==
[~2019-07-07] MED LIST changes: +ERGO500017 PO; +FOLI-17 PO; +FURO20TA3 PO; +GLIM2TAB7 PO; -GLIM4TAB2 PO; +GLIM4TAB8 PO; -GUAI200T3 PO; +GUAI200T37 PO; +LOSA25TA25 PO; +MAGN400T9 PO; +METH2.5T PO; +PIOG45TA63 PO; -REGADENOSON 0.4 MG/5 ML SYRINGE ONE
[2019-07-07 12:06] LABS: BASOPHILS # (AUTO) 0.02 x10^3/uL (0-0.1); BASOPHILS % (AUTO) 0 % (0-1); EOSINOPHILS # (AUTO) 0.11 x10^3/uL (0-0.4); EOSINOPHILS % (AUTO) 2 % (1-7); LYMPHOCYTES # (AUTO) 1.02 x10^3/uL (1-3.4); LYMPHOCYTES % (AUTO) 17 % (22-44); MD NO; MEAN CORPUSCULAR HEMOGLOBIN 34.4 pg (27.0-34.8); MEAN CORPUSCULAR HGB CONC 33.6 g/dL (32.4-35.8); MEAN CORPUSCULAR VOLUME 102.4 fL (80-100); MEAN PLATELET VOLUME 8.2 fL (7.4-10.4); MONOCYTES # (AUTO) 0.49 x10^3/uL (0.2-0.8); MONOCYTES % (AUTO) 8 % (2-9); NEUTROPHILS # (AUTO) 4.38 x10^3/uL (1.8-6.8); NEUTROPHILS % (AUTO) 73 % (42-75); PLATELET COUNT 136 x10^3/uL (130-400); RED BLOOD COUNT 2.73 x10^6/uL (3.82-5.3); RED CELL DISTRIBUTION WIDTH 18.1 % (9.6-15.2)
[2019-07-07 12:21] LABS: ALBUMIN 3.5 g/dL (3.4-5.0); ANION GAP 5 mmol/L (5-15); CALCIUM 8.5 mg/dL (8.5-10.1); CHLORIDE 108 mmol/L (98-107)
[2019-07-07 12:24] LABS: ALANINE AMINOTRANSFERASE 24 U/L (12-78); ALKALINE PHOSPHATASE 62 U/L (45-117); CREATININE 1.29 mg/dL (0.55-1.02); TOTAL PROTEIN 7.7 g/dL (6.4-8.2)
== END | disposition home or self-care (01) ==
LOC: STAR 11:00
PROVIDERS: ATTEND Internal Medicine Gastroenterology
DX: Z01.818 Encounter for other preprocedural examination (principal); D63.8 Anemia in other chronic diseases classified elsewhere; K92.1 Melena; M06.9 Rheumatoid arthritis, unspecified; K75.81 Nonalcoholic steatohepatitis (NASH); D69.6 Thrombocytopenia, unspecified
CPT/HCPCS: 36415; 80053; 85025; 93005

== ENCOUNTER 2019-07-14 11:50 | Day surgery (SDC) | payer MEDICARE ==
[~2019-07-14] VITALS: Ht 139.7 cm; Wt 80.5 kg
[2019-07-14] MEDS ORDERED: LACTATED RINGERS 1,000 ML IV ONE (12:05)
[2019-07-14 12:17] VITALS: BP 142/56
[2019-07-14] MEDS ORDERED: PROPOFOL 10 MG/ML, 50ML ONE (13:33)
[2019-07-14] MEDS ORDERED: MIDAZOLAM 1 MG/ML, 2ML IV PRN (14:30)
[2019-07-14] MEDS ORDERED: FENTANYL PF 100 MCG/2ML IV PRN (14:30)
[2019-07-14] MEDS ORDERED: OXYcodone 5 MG/5 ML ORAL.SOL UDC PO PRN (14:30)
[2019-07-14] MEDS ORDERED: ONDANSETRON 2MG/ML, 2ML IV PRN (14:30)
[2019-07-14] MEDS ORDERED: ONDANSETRON ODT 8 MG PO PRN (14:30)
== END 2019-07-14 15:30 | disposition home or self-care (01) ==
LOC: OUT 11:50
PROVIDERS: ATTEND Internal Medicine Gastroenterology
DX: D64.9 Anemia, unspecified (principal); D12.8 Benign neoplasm of rectum; K29.00 Acute gastritis without bleeding; K29.50 Unspecified chronic gastritis without bleeding; K57.30 Diverticulosis of large intestine without perforation or abscess without bleeding; K64.1 Second degree hemorrhoids; K75.81 Nonalcoholic steatohepatitis (NASH); E11.9 Type 2 diabetes mellitus without complications; I10 Essential (primary) hypertension; E03.9 Hypothyroidism, unspecified; I48.91 Unspecified atrial fibrillation; M06.9 Rheumatoid arthritis, unspecified; D69.6 Thrombocytopenia, unspecified
CPT/HCPCS: 43239; 45380; 45385; 82962; 88305; J2704; J7120; 88342

== ENCOUNTER 2019-07-22 16:03 | Outpatient (CLI) | payer MEDICARE | END 2019-07-22 23:59 | disposition home or self-care (01) | LOC: RAD 16:03 | PROVIDERS: ATTEND Nurse Practitioner Family | DX: R60.9 Edema, unspecified (principal) | CPT/HCPCS: 93970 ==

== ENCOUNTER 2019-10-25 10:09 | Day surgery (SDC) | payer MEDICARE ==
[~2019-10-25] VITALS: Ht 139.7 cm; Wt 77.9 kg
[2019-10-25] MEDS ORDERED: SODIUM CHLORIDE 0.9% 1,000 ML IV SCH (10:52)
[2019-10-25 11:18] VITALS: BP 156/76
[2019-10-25 11:28] LABS: BASOPHILS # (AUTO) 0.01 x10^3/uL (0-0.1); BASOPHILS % (AUTO) 0 % (0-1); EOSINOPHILS % (AUTO) 3 % (1-7); LYMPHOCYTES # (AUTO) 0.63 x10^3/uL (1-3.4); LYMPHOCYTES % (AUTO) 19 % (22-44); MD NO; MEAN CORPUSCULAR HEMOGLOBIN 33.9 pg (27.0-34.8); MEAN CORPUSCULAR HGB CONC 34.2 g/dL (32.4-35.8); MEAN PLATELET VOLUME 8.1 fL (7.4-10.4); MONOCYTES # (AUTO) 0.25 x10^3/uL (0.2-0.8); MONOCYTES % (AUTO) 7 % (2-9); NEUTROPHILS # (AUTO) 2.38 x10^3/uL (1.8-6.8); NEUTROPHILS % (AUTO) 71 % (42-75); PLATELET COUNT 152 x10^3/uL (130-400); RED BLOOD COUNT 2.71 x10^6/uL (3.82-5.3); RED CELL DISTRIBUTION WIDTH 20.6 % (9.6-15.2)
[2019-10-25] MEDS ORDERED: FLUMAZENIL 0.1 MG/1 ML, 5ML ONE (11:57)
[2019-10-25] MEDS ORDERED: NALOXONE 1 MG/ML, 2ML ONE (11:57)
[2019-10-25] MEDS ORDERED: MIDAZOLAM 1 MG/ML, 5ML ONE (11:57)
[2019-10-25] MEDS ORDERED: FENTANYL PF 100 MCG/2ML ONE (11:57)
== END 2019-10-25 14:45 | disposition home or self-care (01) ==
LOC: OUT 10:09
PROVIDERS: ATTEND Internal Medicine Hematology & Oncology
DX: R79.9 Abnormal finding of blood chemistry, unspecified (principal); E11.22 Type 2 diabetes mellitus with diabetic chronic kidney disease; I12.9 Hypertensive chronic kidney disease with stage 1 through stage 4 chronic kidney disease, or unspecified chronic kidney disease; N18.9 Chronic kidney disease, unspecified; C64.9 Malignant neoplasm of unspecified kidney, except renal pelvis; E78.5 Hyperlipidemia, unspecified; E03.9 Hypothyroidism, unspecified; M06.9 Rheumatoid arthritis, unspecified; D64.9 Anemia, unspecified; Z79.82 Long term (current) use of aspirin; Z79.890 Hormone replacement therapy; Z79.899 Other long term (current) drug therapy; Z90.710 Acquired absence of both cervix and uterus; Z98.890 Other specified postprocedural states
CPT/HCPCS: 36415; 38222; 77012; 85025; 85060; 85097; 88237; 88264; 88280; 88305; 88311; 88313; 99156; J2250; J3010; J7030; 99157; J2310